=== PATIENT | male | born 1995 | race Caucasian/White ===

== ENCOUNTER 2021-12-23 08:16 | Outpatient (CLI) | payer BC, SELFPAY ==
--- NOTE | 2021-12-23 13:08 | WPDPFTINT ---
PFT Procedure Performed PFT Procedure Performed Spirometry with Pre/Post Bronchodilator Plethysmography (Lung Vol) Diffusing Cap (DLCO) Flow Vol Loop PFT Interpretation This is a pulmonary function test with pre and post-bronchodilator spirometry, plethysmography and diffusing capacity. The test was performed and results interpreted in accordance with the 2019 and 2005 ATS/ERS Task Force guidelines respectively using the Global Lung Function Initiative-2012 reference equations. Patient demonstrated good effort and cooperation. Reproducibility criteria were met. The quality of the pre bronchodilator spirometry maneuver was Grade A and post bronchodilator spirometry maneuver was Grade A. Findings: Spirometry: The contour of the inspiratory and expiratory flow tracing are normal. The pre bronchodilator FVC is 6.37 L, 108% predicted. The pre bronchodilator FEV1 is 5.10 L, 105% predicted. The pre bronchodilator FEV1: FVC ratio was 80%. The post bronchodilator FVC is 6.42 L, representing 1% increase. The post bronchodilator FEV1 is 5.23 L, representing a 3% increase. The post bronchodilator FEV1: FVC ratio is 82%. Plethysmography: The total lung capacity is 8.33 L, 114% predicted. The functional residual capacity is 4.19 L, 117% predicted. The residual volume is 1.97 L, 118% predicted. Diffusing capacity: The diffusing capacity unadjusted for hemoglobin and carboxyhemoglobin is 31.9, 87% predicted. The diffusing capacity adjusted for alveolar volume is 4.36, 85% predicted. Impression: The spirometry is normal without evidence of an obstructive abnormality. There is no significant improvement after inhaling a single dose of albuterol. The lung volumes are normal. The diffusing capacity is normal. There are no prior studies for comparison
== END 2021-12-23 08:17 | disposition home or self-care (01) ==
LOC: ANHLAB 08:21
PROVIDERS: PCP Emergency Medicine; Visit Provider Emergency Medicine
DX: R06.00 Dyspnea, unspecified (principal)
CPT/HCPCS: 94060; 94726; 94729

== ENCOUNTER 2022-01-12 08:10 | Outpatient (CLI) | payer BC, SELFPAY ==
--- NOTE | ~2022-01-12 | CT_ITS ---
EXAMINATION: CTA chest PE protocol DATE: 01/12/2022 08:41 INDICATION: Shortness of breath TECHNIQUE: Computed tomography angiography (CTA) of the chest was performed with 100 mL Omnipaque-350 intravenous contrast timed to evaluate the pulmonary arteries. Coronal maximum intensity projection 3D-reconstructions were created by the technologist. The dose-length product (DLP) was 247.82 mGy-cm. Automated exposure control and iterative reconstruction technique were employed. COMPARISON: None. FINDINGS: The pulmonary arteries are well-opacified. No pulmonary embolism is identified. The lungs a re free of acute opacities. There is no pleural effusion or pneumothorax. No pathologically enlarged thoracic lymph nodes are identified. The heart size is normal. The visualized osseous structures are unremarkable. IMPRESSION: 1. No pulmonary embolism or acute cardiopulmonary abnormality. Reviewed, dictated and finalized at location F.
== END 2022-01-12 08:11 | disposition home or self-care (01) ==
LOC: ANHIMG 08:11
PROVIDERS: PCP Emergency Medicine; Visit Provider Emergency Medicine
DX: R06.00 Dyspnea, unspecified (principal)
CPT/HCPCS: 71275; Q9967

== ENCOUNTER → 2022-02-01 14:44 | Outpatient (CLI) | payer BC, SELFPAY ==
--- NOTE | ~2022-02-01 | XR_ITS ---
EXAM: XR wrist LT 2V, XR hand LT min 3V DATE: 02/01/2022 15:01 HISTORY: LEFT WRIST AND LT THUMB PAIN . COMPARISON: None available. FINDINGS: Normal mineralization. No fracture or dislocation. No lytic or blastic lesion. Joint space s are maintained. No erosion or periosteal change. Soft tissues within normal limits. IMPRESSION: Radiographically normal left hand and wrist. Reviewed, dictated and finalized at location K. IMPRESSION: Radiographically normal left hand and wrist.
== END ==
PROVIDERS: PCP Emergency Medicine; Visit Provider Emergency Medicine
DX: M25.532 Pain in left wrist (principal); M25.542 Pain in joints of left hand
CPT/HCPCS: 73100; 73130

== ENCOUNTER 2022-05-05 13:00 | Outpatient (CLI) | payer BC, SELFPAY ==
--- NOTE | 2022-05-05 13:19 | ECHO_ITS ---
Patient Info Name: Roberto Valdez Age: 26 years : 1995 Gender: Male Ht: 72 in Wt: 165 lbs BSA: 1.95 m2 HR: 72 bpm BP: 121 / 81 mmHg Heart Rhythm: Sinus Rhythm Technical Quality: Good Exam Date: 05/05/2022 1:38 PM Exam Location: [facility] Patient Status: Outpatient Admit Date: 05/05/2022 Staff Ordering Physician: Sabrina Munson PA-C Technical Product Manager: Maame Earl RDCS Attending Provider: Sabrina Munson PA-C Exam Type: CA echo dop color flow w con Study Info Indications R06.02 - Shortness of breath Complete two-dimensional, color flow and Doppler transthoracic echocardiogram is performed. Summary 1. Complete two-dimensional, color flow and Doppler transthoracic echocardiogram is performed. 2. Left ventricular chamber dimension is mildly enlarged. 3. Left ventricular systolic function is normal, estimated at 60-65%. 4. The left ventricular diastolic function is normal. 5. E/e' 5 is not elevated. 6. There is trace tricuspid valve regurgitation. 7. No pulmonary hypertension, estimated pulmonary arterial systolic pressure is 26 mmHg. 8. There is trace pulmonic regurgitation. Left Ventricle E/e' 5 is not elevated. Left ventricular chamber dimension is mildly enlarged. Left ventricular systolic function is normal, estimated at 60-65%. The left ventricular diastolic function is normal. Right Ventricle Right ventricular systolic function is normal and with normal TAPSE 2.1 cm. Right ventricular chamber dimension is normal. Left Atria Left atrial chamber dimension is normal. Right Atria Right atrial chamber dimension is normal. Aortic Valve The aortic valve is trileaflet. There is no aortic valve stenosis. There is no aortic valve regurgitation. Pulmonic Valve There is trace pulmonic regurgitation. Mitral Valve There is no mitral valve stenosis. There is no mitral valve regurgitation. Tricuspid Valve There is trace tricuspid valve regurgitation. No pulmonary hypertension, estimated pulmonary arterial systolic pressure is 26 mmHg. Pericardium/Pleural There is no pericardial effusion. Inferior Vena Cava Normal inferior vena cava with >50% collapse upon inspiration consistent with normal right atrial pressure, 5 mmHg. Aorta The aortic root size at the sinus of Valsalva is normal. Left Ventricular Outflow Tract Name Value Normal LVOT 2D LVOT Diameter 2.09 cm LVOT Doppler LVOT Peak Gradient 5 mmHg LVOT Mean Gradient 3 mmHg LVOT VTI 20.82 cm LVOT VTI/AV VTI Ratio 0.90 LVOT Stroke Volume 71.37 ml LVOT CO 4.31 l/min LVOT CI 2.21 L/min/m2 Pulmonic Valve Name Value Normal RVOT Doppler RVOT Peak
== END 2022-05-05 13:01 | disposition home or self-care (01) ==
PROVIDERS: PCP Emergency Medicine; Visit Provider Physician Assistant
DX: R06.02 Shortness of breath (principal); R53.82 Chronic fatigue, unspecified
CPT/HCPCS: 93306; C8929